=== PATIENT | male | born 2000 | race Caucasian/White ===

== ENCOUNTER 2024-02-25 17:27 | Emergency (ER) | payer OTHER ==
[2024-02-25 17:45] VITALS: BP 115/53; TEMP 98.7; BMI 32.8
[2024-02-25] MEDS ORDERED: TETRACAINE 0.5% OPHTH SOLN 2 ML BOTTLE ONE (18:01)
[2024-02-25] MEDS ORDERED: FLUORESCEIN NA 1 EA STRIP ONE (18:02)
[2024-02-25] MEDS: TETRACAINE 0.5% HCL 0.6ML DROPPER.BOTTLE OD ONE (18:08)
[2024-02-25 19:04] VITALS: PULSE 50; RESP 18
== END 2024-02-25 18:45 | disposition short-term general hospital (02) ==
LOC: JERFT 17:27 → JER 17:27 → JERFT 18:45
DX: H54.61 Unqualified visual loss, right eye, normal vision left eye (principal)
CPT/HCPCS: 76512; 99285-25